=== PATIENT | female | born 2000 | race Caucasian/White ===

== ENCOUNTER 2022-04-11 15:10 | Emergency (ER) | payer MEDICAID, OTHER ==
[~2022-04-11] VITALS: Ht 162.6 cm; Wt 56.8 kg
[2022-04-11 17:41] VITALS: BP 115/80
[2022-04-11] MEDS ORDERED: METR500 PO (18:41)
[2022-04-11] MEDS ORDERED: DOXY-354 PO (18:42)
[2022-04-11] MEDS ORDERED: PERTUSS(ACELL),DIPH,TET VAC/PF 0.5 ML SYRINGE IM. ONE (18:45)
== END 2022-04-11 19:22 | disposition home or self-care (01) ==
LOC: EMS 15:10
DX: S01.05XA Open bite of scalp, initial encounter (principal); Z88.1 Allergy status to other antibiotic agents; Z88.0 Allergy status to penicillin; W54.0XXA Bitten by dog, initial encounter; Y93.89 Activity, other specified; Y92.89 Other specified places as the place of occurrence of the external cause; Y99.8 Other external cause status
CPT/HCPCS: 90471; 90715; 99283